=== PATIENT | female | born 1940 | race Caucasian/White ===

== ENCOUNTER 2023-09-02 06:45 | Emergency (ER) | payer MEDICARE, SELFPAY ==
[2023-09-02 06:42] VITALS: BP 161/73
[2023-09-02 06:46] VITALS: BP 161/73; PULSE 59; PULSE 67; RESP 18; TEMP 36.5; O2SAT 100; BMI 19.5
--- NOTE | 2023-09-02 07:03 | PC.NURSE ---
PT STATES WAS SITTING IN RECLINER ANS PASSED OUT PT STATES THAT SHE IS STILL FEELS DIZZY. PT STATES IT FEELS LIKE EVERYTHING AROUND HER IS MOVING. PT DOES HAVE HSITORY OF SOME DEMENTIA/MEMORY ISSUES
--- NOTE | 2023-09-02 07:20 | XR_ITS ---
The [address] [address] Patient Name: MYRA AVILA MRN: [id number] date: 1940 Sex: F Assigned Patient Location: ER Current Patient Location: ER Accession/Order Number: [id number] Exam Date: 09/02/2023 07:35 Report Date: 09/02/2023 07:48 At the request of: JAXSON TILLMAN Procedure: XR chest 1V EXAMINATION: XR chest 1V HISTORY: vertigo COMPARISON: No relevant comparison available. TECHNIQUE: AP portable FINDINGS: LUNGS: No significant pulmonary parenchymal abnormalities. VASCULATURE: No increased pulmonary vasculature. PLEURA: No pneumothorax, effusion, or pleural thickening. CARDIAC: No cardiomegaly or cardiac silhouette abnormality. MEDIASTINUM: No visible mass or adenopathy. Aortic atherosclerosis BONES: No fracture or visible bone lesion. OTHER: Bilateral breast implants. XR/XR chest 1V IMPRESSION: No acute cardiopulmonary process Electronically authenticated by: TANIA YOUSIF Date: 09/02/2023 07:48
--- NOTE | 2023-09-02 07:20 | ECG_ITS ---
The 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
[2023-09-02 07:30] LABS: Basophils Absolute Auto 0.1 10^3/uL (0.0-0.1); Eosinophils Absolute Auto 0.1 10^3/uL (0.0-0.7); Eosinophils Percent Auto 1.7 % (0.9-7.0); Hematocrit 40.2 % (36.0-48.0); Hemoglobin 13.1 g/dL (12.0-16.0); Immature Granulocytes Abs Auto 0.01 10^3/uL (0.00-0.03); Immature Granulocytes Pct Auto 0.2 % (0.0-0.5); Lymphocytes Absolute Auto 2.3 10^3/uL (1.2-3.8); Lymphocytes Percent Auto 44.2 % (20.5-60.0); Mean Corpuscular HGB Conc 32.6 g/dL (29.9-35.2); Mean Corpuscular Hemoglobin 32.4 pg (26.7-34.0); Mean Corpuscular Volume 99.5 fL (81.0-99.0); Mean Platelet Volume 10.8 fL (9.5-13.5); Monocytes Absolute Auto 0.5 10^3/uL (0.3-0.8); Monocytes Percent Auto 10.3 % (1.7-12.0); Neutrophils Absolute Auto 2.2 10^3/uL (1.4-6.5); Neutrophils Percent Auto 42.6 % (43.0-75.0); Platelet Count 265 10^3/uL (150-450); Red Blood Count 4.04 10^6/uL (4.20-5.40); Red Cell Distribution Width 12.7 % (11.0-15.0); White Blood Count 5.2 10^3/uL (4.0-11.0)
[2023-09-02 07:43] LABS: Alanine Aminotransferase 22 U/L (14-59); Albumin Globulin Ratio 0.9; Albumin Level 3.4 g/dL (3.4-5.0); Alkaline Phosphatase 79 U/L (46-116); Anion Gap 13.3; Aspartate Amino Transferase 20 U/L (15-37); BUN Creatinine Ratio 9.1; Bilirubin Total 0.5 mg/dL (0.2-1.0); Calcium 9.2 mg/dL (8.5-10.1); Chloride 102 mmol/L (98-107); Estimated GFR (African America >60 (>=60); Estimated GFR (Non-African Ame >60 (>=60); Globulin 3.7 g/dL; Glucose 119 mg/dL (74-106); Magnesium 2.1 mg/dL (1.8-2.4); Potassium 3.3 mmol/L (3.5-5.1); Sodium 138 mmol/L (136-145); Total Protein 7.1 g/dL (6.4-8.2); Troponin I High Sensitivity 4.2 pg/mL (4.0-51.3)
[2023-09-02] MEDS: MECLIZINE HCL 12.5 MG TABLET 25 MG PO (07:51)
[2023-09-02] MEDS: 0.9 % SODIUM CHLORIDE 1,000 ML 999 ML IV (07:51)
--- NOTE | 2023-09-02 07:56 | CT_ITS ---
The [address] [address] Patient Name: MYRA AVILA MRN: [id number] date: 1940 Sex: F Assigned Patient Location: ER Current Patient Location: ER Accession/Order Number: [id number] Exam Date: 09/02/2023 08:06 Report Date: 09/02/2023 08:20 At the request of: JAXSON TILLMAN Procedure: CT head/brain wo con EXAMINATION: CT head/brain wo con, 09/02/2023 8:06 AM EST HISTORY: vertigo COMPARISON: None. TECHNIQUE: CT scan of the head was performed without IV contrast. CT dose reduction technique was used, including Automated Exposure Control. FINDINGS: BRAIN: Moderate diffuse supratentorial atrophy. Mild white matter hypoattenuation likely chronic small vessel ischemic changes . No acute hemorrhage or mass CSF SPACES: No hemorrhage or mass. Lateral ventriculomegaly SKULL: No fracture, mass, or other significant visible lesion. SINUSES: No significant mucosal thickening or fluid on the limited views. ORBITS: No appreciable abnormality on the limited views. OTHER: Negative CT/CT head/brain wo con IMPRESSION: Atrophy and white matter disease. Chronic changes are favored Electronically authenticated by: TANIA YOUSIF Date: 09/02/2023 08:20
--- NOTE | 2023-09-02 07:58 | ED_ITS ---
HPI - General Adult General Chief complaint: Syncope Stated complaint: DIZZY Time Seen by Provider: 09/02/23 07:20 Source: patient Mode of arrival: ambulance Limitations: no limitations History of Present Illness HPI narrative: Patient is a 82-year-old female who is presenting to the Emergency Room today with chief complaint of acute on chronic vertigo. Patient told nursing staff that she felt the room was spinning around, patient told me that the room is not spinning and she is not spinning around. Patient does feel lightheaded and dizzy, she has no headache. No neck pain. Patient has no vision or hearing changes. 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 Patient is currently staying at nursing facility. Patient denies headache, vision or hearing changes. She has no chest pain or shortness of breath. No bowel pain, nausea or vomiting. The patient is extremely pleasant to talk to. . All systems are negative except as noted/marked. All systems reviewed and otherwise negative. . Nurses note and vital signs reviewed and patient is not hypoxic. General: The patient appears well and in no apparent distress. Patient is resting comfortably on cart. Patient is not toxic, lethargic, or listless Skin: Warm, dry, no pallor noted. There is no rash noted. No petechiae, purpura. Head: Normocephalic, atraumatic, Patient has full range of motion of cervical spinal no difficulty. Eye: Normal conjunctiva, no drainage, EOMI. PERRL Ears, Nose, Mouth, and Throat: oral mucosa is moist. Nares patent. Mouth without vesicles. Cardiovascular: Regular Rate and Rhythm, no murmur, gallop, rub Respiratory: Patient is in no distress, no accessory muscle use, lungs are clear to auscultation, no wheezing, rales or rhonchi Back: non-tender, no CVA tenderness bilaterally to percussion. No CT LS midline pain GI: soft, no tenderness to palpation, no masses appreciated. No rebound, guarding, or rigidity noted. No flank pain bilateral, No distention Musculoskeletal: Patient has full range of motion of all of the extremities, no motor, sensory, or focal neurological deficits Neurological: A&O x3, normal speech Psychiatric: Cooperative Related Data Home Medications Medication Instructions Recorded Confirmed docusate sodium 100 mg capsule 100 mg PO DAILY 09/02/23 09/02/23 (Colace) meclizine 25 mg tablet 25 mg PO BID 09/02/23 09/02/23 melatonin 5 mg capsule mg 09/02/23 trazodone 150 mg tablet 150 mg PO DAILY 09/02/23 09/02/23 Allergies Allergy/AdvReac Type Severity Reaction Status Date / Time No Known Drug Allergies Allergy Verified 09/02/23 06:49 Exam Constitutional Vital Signs, click to edit/add: Last Vital Signs Temp 97.7 F 09/02/23 06:46 Pulse 67 09/02/23 06:46 Resp 18 09/02/23 06:46 BP 161/73 H 09/02/23 06:46 Pulse Ox 100 09/02/23 06:46 O2 Del Method Room Air 09/02/23 06:46 Course Vital Signs Vital signs: Vital Signs Blood Pressure 161/73 H 09/02/23 06:42 Temperature 97.7 F 09/02/23 06:46 Pulse Rate 67 09/02/23 06:46 Respiratory Rate 18 09/02/23 06:46 Blood Pressure 161/73 H 09/02/23 06:46 Pulse Oximetry 100 09/02/23 06:46 Oxygen Delivery Method Room Air 09/02/23 06:46 Medical Decision Making [facility] Narrative Medical decision making narrative: Patient CT of the brain, chest x-ray, lab testing shows no significant findings. Patient potassium level is 3.3. Patient was given oral potassium and 1 L of IV fluid. Patient has been given Antivert, she does take Antivert as prescribed. Patient has no acute strokelike signs or symptoms today. She is at no tract or vertiginous symptoms in the Emergency Room. Patient will follow-up with PCP, no questions at discharge. Lab Data Lab results reviewed: Yes I reviewed the patient's lab results Labs: Lab Results 09/02/23 09/02/23 Range/Units 06:50 08:46 WBC 5.2 (4.0-11.0) 10^3/uL RBC 4.04 L (4.20-5.40) 10^6/uL Hgb 13.1 (12.0-16.0) g/dL Hct 40.2 (36.0-48.0) % MCV 99.5 H (81.0-99.0) fL MCH 32.4 (26.7-34.0) pg MCHC 32.6 (29.9-35.2) g/dL RDW 12.7 (11.0-15.0) % Plt Count 265 (150-450) 10^3/uL MPV 10.8 (9.5-13.5) fL Neut % (Auto) 42.6 L (43.0-75.0) % Lymph % (Auto) 44.2 (20.5-60.0) % [place] % (Auto) 10.3 (1.7-12.0) % Eos % (Auto) 1.7 (0.9-7.0) % Baso % (Auto) 1.0 (0.2-2.0) % Neut # (Auto) 2.2 (1.4-6.5) 10^3/uL Lymph # (Auto) 2.3 (1.2-3.8) 10^3/uL [place] # (Auto) 0.5 (0.3-0.8) 10^3/uL Eos # (Auto) 0.1 (0.0-0.7) 10^3/uL Baso # (Auto) 0.1 (0.0-0.1) 10^3/uL Abs Immat Gran (auto) 0.01 (0.00-0.03) 10^3/uL Imm/Tot Granulo (auto) 0.2 (0.0-0.5) % Sodium 138 (136-145) mmol/L Potassium 3.3 L (3.5-5.1) mmol/L Chloride 102 (98-107) mmol/L Carbon Dioxide 26.0 (21.0-32.0) mmol/L Anion Gap 13.3 BUN 8.0 (7.0-18.0) mg/dL Creatinine 0.88 (0.55-1.02) mg/dL Est GFR ( Amer) >60 (>=60) Est GFR (Non-Af Amer) >60 (>=60) BUN/Creatinine Ratio 9.1 Glucose 119 H (74-106) mg/dL Calcium 9.2 (8.5-10.1) mg/dL Magnesium 2.1 (1.8-2.4) mg/dL Total Bilirubin 0.5 (0.2-1.0) mg/dL AST 20 (15-37) U/L ALT 22 (14-59) U/L Alkaline Phosphatase 79 (46-116) U/L Troponin I High Sens 4.2 (4.0-51.3) pg/mL Total Protein 7.1 (6.4-8.2) g/dL Albumin 3.4 (3.4-5.0) g/dL Globulin 3.7 g/dL Albumin/Globulin Ratio 0.9 Urine Color Lt. yellow (YELLOW) Urine Clarity Clear (CLEAR) Urine pH 7.0 (5.0-9.0) Ur Specific [place] 1.015 (1.005-1.025) Urine Protein Negative (NEG/TRACE) mg/dL Urine Glucose (UA) Negative (NEGATIVE) mg/dL Urine Ketones Negative (NEGATIVE) mg/dL Urine Occult Blood Negative (NEGATIVE) Urine Nitrite Negative (NEGATIVE) Urine Bilirubin Negative (NEGATIVE) Urine Urobilinogen 0.2 (0.2-1.0) EU/dL Ur Leukocyte Esterase Trace A (NEGATIVE) Urine RBC None seen (0-2) #/HPF Urine WBC 2-5 A (NONE SEEN) #/HPF Ur Squamous Epith Cells Few A (NONE/RARE) #/LPF Urine Crystals None seen (None Seen) #/HPF Urine Bacteria Trace A (NONE SEEN) #/HPF Urine Casts None seen (NONE SEEN) #/LPF Urine Mucus Small A (NONE SEEN) Ur Culture Indicated? No ECG Data Attestation: I personally reviewed and interpreted this ECG as follows: (EKG interpretation. Normal sinus rhythm at 59 beats a minute. Normal axis deviation. No acute ST elevation, no acute ectopy. QTC of 412. ) Discharge Plan Discharge Chief Complaint: Syncope Clinical Impression: Dizziness, Mild dehydration, Acute hypokalemia Patient Disposition: Home, Self-Care Time of Disposition Decision: 09:30 Condition: Fair Prescriptions / Home Meds: No Action docusate sodium [Colace] 100 mg capsule 100 mg PO DAILY meclizine 25 mg tablet 25 mg PO BID melatonin 5 mg capsule trazodone 150 mg tablet 150 mg PO DAILY Instructions: Hypokalemia (ED), Near Syncope (ED), Lightheadedness (ED), Dizziness (ED) Additional Instructions: Continue to increase fluids. Take woman's One-A-Day multivitamin and increase electrolytes/potassium. Follow-up with PCP if any other acute signs or symptoms occur. Stand Alone Forms: Portal Instructions Referrals: Physician,Non-Staff, MD [Primary Care Provider] - 1 week
[2023-09-02 08:53] LABS: Bilirubin Urine NEGATIVE (NEGATIVE); Blood Urine NEGATIVE (NEGATIVE); Clarity Urine CLEAR (CLEAR); Color Urine LT. YELLOW (YELLOW); Glucose Urine UA NEGATIVE (NEGATIVE); Ketones Urine NEGATIVE (NEGATIVE); Leukocyte Esterase Urine TRACE (NEGATIVE); Nitrite Urine NEGATIVE (NEGATIVE); Protein Urine NEGATIVE (NEG/TRACE); Specific Gravity Urine 1.015 (1.005-1.025); Urobilinogen Urine 0.2 EU/dL (0.2-1.0)
[2023-09-02 08:56] LABS: Urine Microscopic Indicated YES
[2023-09-02 09:04] LABS: Bacteria Urine TRACE #/HPF (NONE SEEN); RBC Urine NONE SEEN #/HPF (0-2)
[2023-09-02 09:05] LABS: Cast Seen? NONE SEEN #/LPF (NONE SEEN); Crystals Seen? None Seen #/HPF (None Seen); Mucus Urine SMALL (NONE SEEN); Squamous Epithelial Cell Urine FEW #/LPF (NONE/RARE); Urine Culture Indicated NO
[2023-09-02] MEDS: POTASSIUM BICARBONATE/CIT 25 MEQ TABLET EFF 50 MEQ PO (10:20)
== END 2023-09-02 10:23 | disposition home or self-care (01) ==
PROVIDERS: Emergency Provider Emergency Medicine
DX: R42 Dizziness and giddiness (principal); E86.0 Dehydration; E87.6 Hypokalemia
CPT/HCPCS: 36415; 70450; 71045; 80053; 81001; 83735; 84484; 85025; 93005; 96360; 99285